=== PATIENT | female | born 1970 | race American Indian/Alaskan Native ===

== ENCOUNTER 2016-11-19 08:36 | Emergency (ER) | payer OTHER ==
[2016-11-19 09:23] LABS: Basophils % (Auto) 0.3 % (0.0-1.8); Eosinophils % (Auto) 1.8 % (0.0-4.3); Hemoglobin 14.1 gm/dl (10.1-14.3); Mean Corpuscular HGB Conc 34 % (30-34); Mean Corpuscular Hemoglobin 32 pg (28-32); Mean Corpuscular Volume 92 fl (79-97); Platelet Count 320 K/mm3 (140-440); Red Blood Count 4.44 M/mm3 (3.65-5.03); Red Cell Distribution Width 13.3 % (13.2-15.2); White Blood Count 6.7 K/mm3 (4.5-11.0)
[2016-11-19 09:30] LABS: Anion Gap 19 mmol/L; BUN/Creatinine Ratio 11.81; Blood Urea Nitrogen 13 mg/dL (7-17); Calcium 8.4 mg/dL (8.4-10.2); Carbon Dioxide 22 mmol/L (22-30); Chloride 100.8 mmol/L (98-107); Glucose 119 mg/dL (65-100); Potassium 3.2 mmol/L (3.6-5.0); Sodium 139 mmol/L (137-145)
[2016-11-19] MEDS ORDERED: ZOFRAN IV ONE (09:51)
[2016-11-19] MEDS ORDERED: MORPHINE IV ONE (09:51)
[2016-11-19] MEDS ORDERED: K-DUR PO ONE (09:53)
--- NOTE | 2016-11-19 09:56 | Emergency Department Report ---
ED N/V/D HPI - General Chief complaint: Nausea/Vomiting/Diarrhea Stated complaint: N/V/D Time Seen by Provider: 11/19/16 09:44 Source: patient Mode of arrival: Ambulatory Limitations: No Limitations - History of Present Illness Initial comments: 46-year-old female with a past medical history hypertension, and previous cholecystectomy presents to the hospital with complaints of pain, nausea, vomiting, and diarrhea for the past 2 days. Patient has been able to eat and drink very little. She plans a generalized cramping/sharp abdominal pain rated 6/10 in intensity that is intermittent with no aggravating or alleviating factors. Patient has more diarrhea than vomiting. Taking Imodium without relief. Denies melena, hematochezia, fever, recent travel, or sick contacts. Patient also complains of cough productive yellow sputum and chest pain with coughing. - Related Data Home Medications Medication Instructions Recorded Confirmed Last Taken Hydrochlorothiazide [Hctz] 12.5 mg PO QDAY 11/19/16 11/19/16 11/18/16 Previous Rx's Medication Instructions Recorded Last Taken Type HYDROcodone/APAP 5-325 [[place] 1 each PO Q6HR PRN #20 tablet 11/19/16 Unknown Rx 5/325] Loperamide [Imodium] 2 mg PO Q2HR PRN #20 capsule 11/19/16 Unknown Rx Ondansetron [Zofran Odt] 4 mg PO Q8HR PRN #20 tab.rapdis 11/19/16 Unknown Rx Potassium Chloride [K-Dur] 20 meq PO BID #4 tablet 11/19/16 Unknown Rx Allergies Allergy/AdvReac Type Severity Reaction Status Date / Time Sulfa (Sulfonamide Allergy Hives Verified 11/19/16 08:40 Antibiotics) ED Review of Systems ROS: Stated complaint: N/V/D Other details as noted in HPI Comment: All other systems reviewed and negative Other: Constitutional: No fevers chills Eyes: No eye pain visual changes ENT: No ear pain or throat pain Neck: Denies pain Respiratory: Denies wheezing shortness of breath Cardiovascular: Denies palpitations, syncope GI: As per HPI : Denies dysuria Musculoskeletal: Denies back pain Skin: Denies rash, lesions, erythema Neurologic: Denies headache, numbness, weakness Psychiatric: Denies suicidal ideation, hallucinations ED Past Medical Hx - Past Medical History Previous Medical History?: Yes Hx Hypertension: Yes - Surgical History Past Surgical History?: Yes Hx Cholecystectomy: Yes - Social History Smoking Status: Never Smoker Substance Use Type: Alcohol, Prescribed - Medications Home Medications: Home Medications Medication Instructions Recorded Confirmed Last Taken Type HYDROcodone/APAP 5-325 [[place] 1 each PO Q6HR PRN #20 tablet 11/19/16 Unknown Rx 5/325] Hydrochlorothiazide [Hctz] 12.5 mg PO QDAY 11/19/16 11/19/16 11/18/16 History Loperamide [Imodium] 2 mg PO Q2HR PRN #20 capsule 11/19/16 Unknown Rx Ondansetron [Zofran Odt] 4 mg PO Q8HR PRN #20 tab.rapdis 11/19/16 Unknown Rx Potassium Chloride [K-Dur] 20 meq PO BID #4 tablet 11/19/16 Unknown Rx ED Physical Exam - General Limitations: No Limitations - Other Other exam information: General: No limitations, patient is alert in no acute distress Head exam: Atraumatic, normocephalic Eyes exam: Normal appearance ENT: Moist mucous membrane, normal oropharynx Neck exam: Normal inspection, full range of motion Respiratory exam: Clear to auscultation bilateral, no wheezes, rales, crackles Cardiovascular: Normal rate and rhythm, mild tachycardia which increases with sitting up in bed Abdomen: Soft, nondistended, generalized tenderness greatest in the epigastric area. Increased bowel sounds. No rebound or guarding Extremity: Full range of motion normal inspection no deformity Back: Normal Inspection, full range of motion, no tenderness Neurologic: Alert, oriented x3, cranial nerves intact, no motor or sensory deficit Psychiatric: normal affect, normal mood Skin: Warm, dry, intact ED Course Vital Signs 11/19/16 11/19/16 11/19/16 08:40 09:30 09:36 Temperature 97.9 F Pulse Rate 110 H Respiratory 18 18 Rate Blood Pressure 154/99 O2 Sat by Pulse 99 96 99 Oximetry 11/19/16 11/19/16 11/19/16 09:46 10:00 10:06 Temperature Pulse Rate 94 H 97 H Respiratory 12 12 18 Rate Blood Pressure 123/86 155/134 O2 Sat by Pulse 99 98 Oximetry 11/19/16 11/19/16 11/19/16 10:16 10:30 10:36 Temperature Pulse Rate 89 96 H Respiratory 9 L 11 L 13 Rate Blood Pressure 155/134 155/134 O2 Sat by Pulse 98 96 Oximetry 11/19/16 11/19/16 11/19/16 10:46 11:00 12:00 Temperature Pulse Rate 92 H 90 104 H Respiratory 13 13 17 Rate Blood Pressure 155/134 155/134 O2 Sat by Pulse 96 100 98 Oximetry 11/19/16 11/19/16 13:00 14:00 Temperature Pulse Rate 75 78 Respiratory 13 14 Rate Blood Pressure 139/71 O2 Sat by Pulse 92 100 Oximetry - Reevaluation(s) Reevaluation #1: 11/19/16 14:30 Patient EKG treated on morphine, potassium, Zofran, Pepcid, and IVF continued to have spasms of the upper abdomen. Pt received Bentyl with improvement in pain. Patient was able to urinate after receiving 2 L and urine was still dark in color therefore patient received 3 L of fluid total (1 Liter D5NS and 2 L normal saline boluses) 11/19/16 14:35 ED Medical Decision Making - Lab Data Result diagrams: 11/19/16 09:00 11/19/16 09:00 [email or web address] [id number] Lab Results 11/19/16 11/19/16 11/19/16 Range/Units 09:00 09:00 09:00 WBC 6.7 (4.5-11.0) K/mm3 RBC 4.44 (3.65-5.03) M/mm3 Hgb 14.1 (10.1-14.3) gm/dl Hct 41.0 (30.3-42.9) % MCV 92 (79-97) fl MCH 32 (28-32) pg MCHC 34 (30-34) % RDW 13.3 (13.2-15.2) % Plt Count 320 (140-440) K/mm3 Lymph % (Auto) 26.0 (13.4-35.0) % [place] % (Auto) 7.1 (0.0-7.3) % Eos % (Auto) 1.8 (0.0-4.3) % Baso % (Auto) 0.3 (0.0-1.8) % Lymph # 1.7 (1.2-5.4) K/mm3 [place] # 0.5 (0.0-0.8) K/mm3 Eos # 0.1 (0.0-0.4) K/mm3 Baso # 0.0 (0.0-0.1) K/mm3 Seg Neutrophils % 64.8 (40.0-70.0) % Seg Neutrophils # 4.3 (1.8-7.7) K/mm3 Potassium 3.2 L (3.6-5.0) mmol/L Chloride 100.8 (98-107) mmol/L Carbon Dioxide 22 (22-30) mmol/L Anion Gap 19 mmol/L BUN 13 (7-17) mg/dL Creatinine 1.1 (0.7-1.2) mg/dL Estimated GFR > 60 ml/min BUN/Creatinine Ratio 11.81 % Glucose 119 H (65-100) mg/dL Calcium 8.4 (8.4-10.2) mg/dL Magnesium 1.9 (1.7-2.3) mg/dL Total Bilirubin 0.6 (0.1-1.2) mg/dL Direct Bilirubin < 0.2 (0-0.2) mg/dL AST 24 (5-40) units/L ALT 28 (7-56) units/L Alkaline Phosphatase 98 (35-129) units/L Total Protein 8.0 (6.3-8.2) g/dL Albumin 4.2 (3.9-5) g/dL Albumin/Globulin Ratio 1.1 % Lipase 15 (13-60) units/L Urine Color (Yellow) Urine Turbidity (Clear) Urine pH (5.0-7.0) Ur Specific [place] (1.003-1.030) Urine Protein (Negative) mg/dL Urine Glucose (UA) (Negative) mg/dL Urine Ketones (Negative) mg/dL Urine Blood (Negative) Urine Nitrite (Negative) Urine Bilirubin (Negative) Urine Urobilinogen (<2.0) mg/dL Ur Leukocyte Esterase (Negative) Urine WBC (Auto) (0.0-6.0) /HPF Urine RBC (Auto) (0.0-6.0) /HPF U Epithel Cells (Auto) (0-13.0) /HPF Urine Bacteria (Auto) (Negative) /HPF Hyaline Casts /LPF Urine Mucus /HPF Urine HCG, Qual (Negative) 11/19/16 Range/Units 13:28 WBC (4.5-11.0) K/mm3 RBC (3.65-5.03) M/mm3 Hgb (10.1-14.3) gm/dl Hct (30.3-42.9) % MCV (79-97) fl MCH (28-32) pg MCHC (30-34) % RDW (13.2-15.2) % Plt Count (140-440) K/mm3 Lymph % (Auto) (13.4-35.0) % [place] % (Auto) (0.0-7.3) % Eos % (Auto) (0.0-4.3) % Baso % (Auto) (0.0-1.8) % Lymph # (1.2-5.4) K/mm3 [place] # (0.0-0.8) K/mm3 Eos # (0.0-0.4) K/mm3 Baso # (0.0-0.1) K/mm3 Seg Neutrophils % (40.0-70.0) % Seg Neutrophils # (1.8-7.7) K/mm3 Potassium (3.6-5.0) mmol/L Chloride (98-107) mmol/L Carbon Dioxide (22-30) mmol/L Anion Gap mmol/L BUN (7-17) mg/dL Creatinine (0.7-1.2) mg/dL Estimated GFR ml/min BUN/Creatinine Ratio % Glucose (65-100) mg/dL Calcium (8.4-10.2) mg/dL Magnesium (1.7-2.3) mg/dL Total Bilirubin (0.1-1.2) mg/dL Direct Bilirubin (0-0.2) mg/dL AST (5-40) units/L ALT (7-56) units/L Alkaline Phosphatase (35-129) units/L Total Protein (6.3-8.2) g/dL Albumin (3.9-5) g/dL Albumin/Globulin Ratio % Lipase (13-60) units/L Urine Color Yellow (Yellow) Urine Turbidity Clear (Clear) Urine pH 6.0 (5.0-7.0) Ur Specific [place] 1.013 (1.003-1.030) Urine Protein <15 mg/dl (Negative) mg/dL Urine Glucose (UA) 150 (Negative) mg/dL Urine Ketones Tr (Negative) mg/dL Urine Blood Lg (Negative) Urine Nitrite Neg (Negative) Urine Bilirubin Neg (Negative) Urine Urobilinogen < 2.0 (<2.0) mg/dL Ur Leukocyte Esterase Neg (Negative) Urine WBC (Auto) 2.0 (0.0-6.0) /HPF Urine RBC (Auto) 26.0 (0.0-6.0) /HPF U Epithel Cells (Auto) 1.0 (0-13.0) /HPF Urine Bacteria (Auto) 1+ (Negative) /HPF Hyaline Casts 1 /LPF Urine Mucus 1+ /HPF Urine HCG, Qual Negative (Negative) - Medical Decision Making Patient feels better with treatment in the ED. No vomiting with by mouth challenge. Will be discharged home with diagnosis of acute gastroenteritis. Strict instructions to return if symptoms worsen - Differential Diagnosis gastroenteritis, appendicitis, diverticulitis Critical Care Time: No Critical care attestation.: If time is entered above; I have spent that time in minutes in the direct care of this critically ill patient, excluding procedure time. ED Disposition Clinical Impression: Acute gastroenteritis, Hypokalemia Disposition: DISCHARGED TO HOME OR SELFCARE Is pt being admited?: No Does the pt Need Aspirin: No Condition: Stable Instructions: Gastroenteritis (ED), Hypokalemia (ED) Additional Instructions: Take the medications as prescribed. Return if symptoms worsen. Follow up with a primary care doctor or clinic in 2-3 days. Prescriptions: HYDROcodone/APAP 5-325 [[place] 5/325] 1 each PO Q6HR PRN #20 tablet PRN Reason: Pain Loperamide [Imodium] 2 mg PO Q2HR PRN #20 capsule PRN Reason: Diarrhea Ondansetron [Zofran Odt] 4 mg PO Q8HR PRN #20 tab.rapdis PRN Reason: Nausea And Vomiting Potassium Chloride [K-Dur] 20 meq PO BID #4 tablet Referrals: [facility] [Provider Group] - 3-5 Days TYREE HARRIS MD [Staff Physician] - 3-5 Days Forms: Work/School Release Form(ED) Time of Disposition: 14:42
[2016-11-19] MEDS ORDERED: D5NS 1,000 ML IV SCH (10:00)
[2016-11-19 10:02] LABS: Alanine Aminotransferase 28 units/L (7-56); Albumin 4.2 g/dL (3.9-5); Albumin/Globulin Ratio 1.1 %; Alkaline Phosphatase 98 units/L (35-129); Bilirubin,Total 0.6 mg/dL (0.1-1.2); Lipase 15 units/L (13-60); Magnesium 1.9 mg/dL (1.7-2.3)
[2016-11-19 10:03] LABS: Bilirubin,Direct < 0.2 mg/dL (0-0.2)
[2016-11-19] MEDS ORDERED: BENTYL IM ONE (11:39)
[2016-11-19] MEDS ORDERED: NACL 0.9% 1000 ML 1,000 ML IV ONE ×2 (11:39→13:09)
[2016-11-19 13:58] LABS: Bacteria,Urine 1+ /HPF (Negative); Bilirubin,Urine NEG (Negative); Blood,Urine LG (Negative); Ketones,Urine TR mg/dL (Negative); Leukocyte Esterase,Urine NEG (Negative); Mucus,Urine 1+ /HPF; Nitrite,Urine NEG (Negative); Protein,Urine <15 mg/dL mg/dL (Negative); Urobilinogen,Urine < 2.0 mg/dL (<2.0)
[2016-11-19 14:49] VITALS: BP 121/72
== END 2016-11-19 14:50 | disposition home or self-care (01) ==
LOC: ED 08:36
DX: K52.9 Noninfective gastroenteritis and colitis, unspecified (principal); E87.6 Hypokalemia; I10 Essential (primary) hypertension; Z90.49 Acquired absence of other specified parts of digestive tract
CPT/HCPCS: 36415; 80048; 80074; 81001; 81025; 83690; 83735; 85025; 96361; 96372; 96374; 96375; 99283; J0500; J2270; J2405; J7030; J7042